=== PATIENT | male | born 1990 | race Caucasian/White ===

== ENCOUNTER 2017-10-19 23:08 | Emergency (ER) | payer OTHER ==
[~2017-10-19] VITALS: Ht 177.8 cm; Wt 88.5 kg
[2017-10-20 00:10] VITALS: BP 132/88
== END 2017-10-20 00:10 | disposition home or self-care (01) ==
LOC: M.ERS 23:08
DX: Z71.1 Person with feared health complaint in whom no diagnosis is made (principal)